=== PATIENT | male | born 2000 | race Caucasian/White ===

== ENCOUNTER 2022-08-01 02:11 | Emergency (ER) | payer OTHER ==
[2022-08-01 02:47] VITALS: RESP 18; TEMP 98.7; BMI 39.4
[2022-08-01] MEDS ORDERED: FAMOTIDINE 20 MG/50 ML IVPB 20 MG/50 ML MG IVPB ONE ×2 (05:33→05:37)
[2022-08-01] MEDS ORDERED: SODIUM CHLORIDE 0.9% 500 ML INFUS.BAG IV ONE (05:34)
[2022-08-01] MEDS ORDERED: MAG HYDROX/AL HYDROX/SIMETH 30 ML UNIT-DOSE CUP PO ONE (07:24)
[2022-08-01] MEDS ORDERED: SUCRALFATE 1 GM TABLET (FP) PO ONE (07:24)
[2022-08-01] MEDS ORDERED: ACETAMINOPHEN 1000 MG/100 ML BAG IVPB ONE (07:24)
[2022-08-01] MEDS ORDERED: MAG HYDROX/AL HYDROX/SIMETH 30 ML UNIT-DOSE CUP ONE (07:39)
[2022-08-01] MEDS ORDERED: SUCRALFATE 1 GM TABLET (FP) ONE (07:42)
[2022-08-01] MEDS ORDERED: ACETAMINOPHEN INJECTION 100 ML IVPB ONE (07:42)
[2022-08-01 08:28] VITALS: BP 108/71; PULSE 70
== END 2022-08-01 08:29 | disposition home or self-care (01) ==
LOC: JER 02:11
PROC: 3E0333Z Introduction of Anti-inflammatory into Peripheral Vein, Percutaneous Approach (ICD-10-PCS; principal; 2022-08-01)
PROC: 3E033GC Introduction of Other Therapeutic Substance into Peripheral Vein, Percutaneous Approach (ICD-10-PCS; 2022-08-01)
DX: R09.1 Pleurisy (principal); R11.2 Nausea with vomiting, unspecified
CPT/HCPCS: 0241U-QW; 71046-TC-FY; 93005; 93010; 99285-25